=== PATIENT | male | born 1955 | race Caucasian/White ===

== ENCOUNTER 2018-03-28 12:55 | Outpatient (RCR) | payer OTHER | END 2018-03-28 15:58 | disposition home or self-care (01) | DX: M54.42 Lumbago with sciatica, left side (principal) ==

== ENCOUNTER → 2019-06-01 | Outpatient (CLI) | payer OTHER | LOC: LAB 10:58 | PROVIDERS: ATTEND Internal Medicine | DX: R05 Cough (principal); R50.9 Fever, unspecified; J02.9 Acute pharyngitis, unspecified | CPT/HCPCS: 87804 ==

== ENCOUNTER 2021-01-26 05:49 | Outpatient (CLI) | payer OTHER ==
[~2021-01-26] VITALS: Ht 193 cm; Wt 131.7 kg
[2021-01-26] MEDS ORDERED: ZOLP5TAB7 PO (12:21)
[2021-01-26] MEDS ORDERED: BENA20TA7 PO ×2 (12:21)
[2021-01-26] MEDS ORDERED: AMLO-250 PO (12:32)
== END 2021-01-26 15:39 | disposition home or self-care (01) ==
LOC: PREOP 05:49
PROVIDERS: ATTEND Internal Medicine
DX: Z01.818 Encounter for other preprocedural examination (principal)

== ENCOUNTER 2021-02-03 06:55 | Day surgery (SDC) | payer OTHER ==
--- NOTE | 2021-01-27 06:44 | HISTORY AND PHYSICAL ---
DATE OF SERVICE: COLONOSCOPY HISTORY AND PHYSICAL HISTORY OF PRESENT ILLNESS: The patient is a 65-year-old white male, seen in the office for followup of obstructive sleep apnea and hypertension. He last accomplished colonoscopy in 2010 at which time, he had no significant neoplasia. He is being set up for repeat screening colonoscopy, not aware of any family history for colon cancer. Reports that he has been feeling well and has been golfing with no chest discomfort. Denies orthopnea, PND, pedal edema or dyspnea on exertion. PHYSICAL EXAMINATION: GENERAL: Reveals a white male, appeared to be in no acute distress. Weight stable at 290.3 pounds. VITAL SIGNS: Blood pressure 118/86. HEENT: Unremarkable. CHEST: Clear. CARDIOVASCULAR: Reveals a regular rate and rhythm without murmur, S3 or S4. ABDOMEN: Soft, supple without mass, organomegaly or tenderness. RECTAL: Deferred at the time of colonoscopy. EXTREMITIES: Reveal no cyanosis, clubbing or edema. ASSESSMENT AND PLAN: 1. The patient was set up for screening colonoscopy. Prep instructions with Suprep kit were given and questions were answered. 2. Hypertension, under good control. 3. The patient did temporarily stop CPAP therapy due to machine recall. He has gone back to using his old machine, which he prefers anyway, so we will hold off that for now and looking into new machine replacement. We will see him back in 6 months with repeat chemistry panel and lipid panel. Job ID: [id number] DocumentID: [id number] Dictated Date: 12/31/2020 16:26:49 Vice Provost Date: 12/31/2020 16:52:17 Dictated By: ANGELA NESS MD
[~2021-02-03] VITALS: Ht 193 cm; Wt 131.7 kg
[~2021-02-03 06:55] MED LIST: AMLO-250 PO; BENA-3 PO; ZOLP5TAB7 PO
[2021-02-03] MEDS ORDERED: LACTATED RINGERS 1,000 ML IV ONE (07:02)
[2021-02-03] MEDS ORDERED: PROPOFOL INJECTION 50 ML IV ONE (07:14)
[2021-02-03] MEDS ORDERED: LIDOCAINE JELLY 2% 6 ML SYRINGE MM PRN (07:15)
[2021-02-03] MEDS ORDERED: LACTATED RINGERS 1,000 ML IV STA (07:15)
[2021-02-03 07:31] VITALS: BP 122/84
--- NOTE | 2021-02-03 08:04 | Pre-Op Note & Conscious Sedat ---
Pre-Operative Progress Note H&P Reviewed The H&P was reviewed, patient examined and no changes noted. Date H&P Reviewed: Feb 03, 2021 Time H&P Reviewed: 07:45 Conscious Sedation Pre-Proced ASA Score 2 For ASA 3 and 4: Consider anesthesia and medical clearance. Also, for patients with a history of failed moderate sedation consider anesthesia. Airway Lungs Heart ASA score ASA 1: a normal healthy patient ASA 2: a patient with a mild systemic disease (mid diabetes, controlled hypertension, obesity ASA 3: a patient with a severe systemic disease that limits activity (angina, COPD, prior Myocardial infarction) ASA 4: a patient with an incapacitating disease that is a constant threat to life (CHF, renal failure) ASA 5: a moribund patient not expected to survive 24 hrs. (ruptured aneurysm) ASA 6: a declared brain- patient whose organs are being harvested. For emergent operations, add the letter E after the classification Mallampati Classification Grade 2 Sedation Plan Analgesia, Amnesia, Plan communicated to team members, Discussed options with patient/fam, Discussed risks with patient/fam The patient is an appropriate candidate to undergo the planned procedure, sedation, and anesthesia. The patient immediately re-assessed prior to indication. ANGELA NESS MD Feb 03, 2021 08:04
[2021-02-03 08:32] VITALS: BP 121/60
[2021-02-03 08:40] VITALS: BP 132/65
--- NOTE | 2021-02-03 08:44 | Anesthesia-General Post-Op ---
MAC Patient Condition Mental Status/LOC: Same as Preop Cardiovascular: Satisfactory Nausea/Vomiting: Absent Respiratory: Satisfactory Pain: Controlled Complications: Absent Post Op Complications Complications None Follow Up Care/Instructions Patient Instructions None needed. Anesthesiology Discharge Order Discharge Order Patient is doing well, no complaints, stable vital signs, no apparent adverse anesthesia problems. No complications reported per nursing. FRANCIS CRUZ CRNA Feb 03, 2021 08:44
[2021-02-03 09:06] VITALS: BP 128/74
[2021-02-03 09:07] VITALS: BP 128/74
--- NOTE | 2021-02-03 13:12 | OPERATIVE REPORT ---
DATE OF SERVICE: COLONOSCOPY SUMMARY INDICATION FOR THE PROCEDURE: Screening. DESCRIPTION OF PROCEDURE: The patient was placed in the left lateral decubitus position. Prior to undergoing colonoscopy, a digital rectal evaluation was performed. Anal sphincter tone was normal. The perianal reflex was intact. Prostate is mildly enlarged and anodular on digital inspection. No abnormalities were noted on digital inspection of the anal canal or distal rectal vault. The colonoscope was then inserted into the rectum and under direct visualization advanced to the cecum. Cecum was identified by identification of the ileocecal valve and cecal strap. Quality of prep was fair. Photographic documentation of the cecum was obtained. Careful inspection was made as the colonoscope was withdrawn. FINDINGS: Several grade I internal hemorrhoid complexes were noted with no evidence for external hemorrhoids. The rectum was unremarkable. Present at the rectosigmoid junction was a 6 to 8 mm sessile hyperplastic-appearing polyp that was photographed and biopsied and ablated with no subsequent blood loss. The sigmoid colon, descending colon, splenic flexure, transverse colon, and hepatic flexure were unremarkable. Present in the proximal ascending colon was a 1 cm sessile adenomatous appearing polyp. It was photographed and biopsied and ablated with no blood loss. The remainder of the ascending colon and cecum were unremarkable. ASSESSMENT: Two polyps were removed today, the larger more concerning cm in the proximal ascending colon for which we will await on histopathology report before making future surveillance colonoscopy recommendations. The patient had mild BPH on digital evaluation and several small grade I internal hemorrhoid complexes with no evidence for external hemorrhoids. No evidence for diverticular disease was noted. Job ID: [id number] DocumentID: [id number] Dictated Date: 02/03/2021 08:35:30 Manufacturing Cost Estimator Date: 02/03/2021 13:11:32 Dictated By: ANGELA NESS MD
== END 2021-02-03 09:20 | disposition home or self-care (01) ==
LOC: ENDO 06:55
PROVIDERS: ATTEND Internal Medicine
DX: Z12.11 Encounter for screening for malignant neoplasm of colon (principal); D12.2 Benign neoplasm of ascending colon; K62.1 Rectal polyp; K63.5 Polyp of colon; K64.0 First degree hemorrhoids; I10 Essential (primary) hypertension; G47.33 Obstructive sleep apnea (adult) (pediatric); F17.210 Nicotine dependence, cigarettes, uncomplicated; Z99.89 Dependence on other enabling machines and devices; Z79.899 Other long term (current) drug therapy
CPT/HCPCS: 88305

== ENCOUNTER → 2022-05-07 | Outpatient (CLI) | payer OTHER ==
--- NOTE | 2022-05-07 15:02 | Diagnostic Imaging Report ---
INDICATION: L SHOULDER AND UPPER CHEST WALL PAIN, TOBACCOISM COMPARISON: None FINDINGS: Frontal and lateral views of the chest demonstrate normal heart size and pulmonary vascularity. The lungs are clear. There are no signs of infiltrate, pleural effusions or pneumothoraces. The visualized osseous structures show no acute abnormalities. IMPRESSION: 1. No acute process. No signs of infiltrates, effusions or pneumothoraces. Dictated by: Dictated on workstation # [id number]
== END ==
LOC: RAD 13:01
PROVIDERS: ATTEND Internal Medicine
DX: M25.512 Pain in left shoulder (principal); R07.89 Other chest pain; Z72.0 Tobacco use
CPT/HCPCS: 71046